=== PATIENT | male | born 1975 | race Caucasian/White ===

== ENCOUNTER 2017-02-09 10:09 | Emergency (ER) | payer BC ==
[~2017-02-09 10:09] MED LIST: Sodium Chloride 0.9% 1,000 ML BAG ONE
[2017-02-09] MEDS ORDERED: Fentanyl 100 MCG/2 ML VIAL ONE ×2 (10:22→12:09)
[2017-02-09] MEDS ORDERED: Ketorolac Tromethamine 30 MG/ML VIAL ONE (10:22)
[2017-02-09] MEDS ORDERED: Ondansetron HCl/PF 4 MG/2 ML Vial ONE (10:22)
[2017-02-09 10:54] LABS: Anion Gap 19 mmol/L (10-20); BUN (Urea Nitrogen) 14 mg/dL (8.9-20.6); Calc. Creatinine Clearance 0 mL/min (70-130); Carbon Dioxide 18 mmol/L (22-29); Chloride 109 mmol/L (98-107); Estimated GFR-MDRD 66; Glucose 113 mg/dL (70-105); Potassium 3.9 mmol/L (3.5-5.1); Sodium 142 mmol/L (136-145)
[2017-02-09 10:59] LABS: CKMB 1.1 ng/mL (0-6.6); Troponin I Less than 0.010 ng/mL (< 0.028)
[2017-02-09] MEDS ORDERED: HYDROcodone/Acetaminophen 10/325 mg Tablet ONE (11:37)
--- NOTE | 2017-02-09 11:41 | CT ---
CT ABDOMEN AND PELVIS STONE PROTOCOL: History: Left flank pain since this morning. Comparison: None. FINDINGS: Lung bases are clear. No pericardial effusion. Right pericardial diaphragmatic lymph nodes which are mildly prominent. There is a calculus adjacent to the right mid ureter approximately 6 cm from the renal pelvis. There is a 0.6 x 0.6 cm calculus adjacent to the left midureter 5.7 cm from the left renal pelvis. There is extensive fluid in the left ureter. No free intraperitoneal gas or fluid. The right renal collect ing system is without calculus. Lung bases are clear. No pericardial effusion. There is a disc spacer at L3-4. Remainder of the skeleton is unremarkable. IMPRESSION: 1. 0.6 x 0.5 cm calculus left proximal ureter with extensive adjacent periureteral stranding and per inephric stranding. Given the amount of perinephric stranding a ureteral injury cannot be totally ex cluded. Urologic consultation is recommended. 2. No right sided renal calculus. POS: [facility]
[2017-02-09] MEDS ORDERED: Promethazine HCl 25 MG/ML VIAL ONE (12:09)
== END 2017-02-09 12:38 | disposition home or self-care (01) ==
LOC: MADERS 10:09
DX: N20.1 Calculus of ureter (principal); Z79.899 Other long term (current) drug therapy
CPT/HCPCS: 74176; 80048; 82553; 84484; 96361; 96374; 96375; 96376; J1885; J2405; J2550; J3010; J7050